=== PATIENT | female | born 1940 | race Caucasian/White ===

== ENCOUNTER 2016-11-16 10:45 | Inpatient (IN) | payer OTHER, MEDICARE ==
[~2016-11-16] VITALS: Ht 165.1 cm; Wt 69.1 kg
[2016-11-16] MEDS ORDERED: SODIUM CHLOR 0.9% 1000 ML INJ 1,000 ML IV ONE (10:47)
[2016-11-16 10:48] VITALS: BP 155/70; PULSE 50; RESP 17; TEMP 97.6; O2SAT 97
[2016-11-16 10:53] VITALS: O2SAT 100
--- NOTE | 2016-11-16 10:58 | PD ---
HPI Chief Complaint: stroke alert Time Seen by Provider: 10:47 Travel History International Travel<30 days: No Contact w/Intl Traveler<30days: No Traveled to known affect area: No History of Present Illness HPI The patient is a 76-year-old female who presents to the emergency department via EMS as a stroke alert. According to EMS the patient was outside in the heat earlier today when she suddenly developed some difficulty with her speech and mild confusion. The patient's onset of symptoms were at 10 AM according to EMS. The patient does have a previous history of CVA with right sided deficits , however, they state the patient apparently has normal speech according to the . EMS states that the patient's GCS was 14, she had difficulty answering questions and had noticeable dysarthria. Upon arrival the patient does appear to have expressive dysarthria, unsure if she has receptive aphasia as she does not repeat phrases properly and has difficulty answering questions except for her name. The medication list by EMS reveals the patient apparently takes no blood thinners including aspirin. No further information is obtainable from the patient. [facility] Past Medical History Narrative Medical CVA according to EMS, history of intracranial hemorrhage according to Dr. Katz who sees the patient in the office Past Surgical History Narrative Surgical Unable to be obtained Social History Tobacco Use: No Allergies-Medications (Allergen,Severity, Reaction): Coded Allergies: epinephrine (Verified Allergy, Intermediate, 11/16/16) Reported Meds & Prescriptions Reported Meds & Active Scripts Active Reported Sodium Chloride 1 Gm Tab 1 Gm PO DAILY Famotidine 20 Mg Tab 20 Mg PO BID Donepezil 10 Mg Tab 10 Mg PO HS Oxcarbazepine 600 Mg Tab 600 Mg PO DAILY Fluoxetine (Fluoxetine HCl) 40 Mg Cap 40 Cap PO DAILY Review of Systems ROS Limitations: Clinical Condition, Speech Impaired, Other: (history obtained from EMS) Except as stated in HPI: all other systems reviewed are Neg Neurologic: Positive: Change in Mentation, Slurred Speech Physical Exam Narrative GENERAL: Awake, 76-year-old female who appears her stated age and is in no acute respiratory distress. SKIN: Focused skin assessment warm/dry. HEAD: Atraumatic. Normocephalic. EYES: Pupils equal and round. Pupils are 3 mm bilateral and reactive. She is able to see fingers at a distance of 2 feet without difficulty. Occasional droop of the left upper eyelid. ENT: No nasal bleeding or discharge. Mucous membranes pink and moist. NECK: Trachea midline. No JVD. CARDIOVASCULAR: Regular rate and rhythm. No murmur appreciated. RESPIRATORY: No accessory muscle use. Clear to auscultation. Breath sounds equal bilaterally. GASTROINTESTINAL: Abdomen soft, non-tender, nondistended. No rebound tenderness. MUSCULOSKELETAL: No obvious deformities. No clubbing. No cyanosis. No edema. NEUROLOGICAL: Awake and alert. Patient appears to have mild left facial droop. No drift of the upper or lower extremities. Sensation appears to be intact in the arms, legs, and face bilaterally. Expressive dysarthria noted. Patient does have difficulty following simple commands, is able to tell me how may fingers I am holding up and her name, but not the month, year, and is unable to repeat phrases. [id number] and finger to nose were unable to be performed as patient has difficulty understanding what I am telling her, possible receptive aphasia. PSYCHIATRIC: Unable to assess. Data Data Last Documented VS Vital Signs Date Time Temp Pulse Resp B/P Pulse Ox O2 Delivery O2 Flow Rate FiO2 11/16/16 10:53 100 Nasal Cannula 2.00 11/16/16 10:48 97.6 50 17 155/70 Orders Diet Npo (11/16/16 Lunch) Activity Bed Rest (11/16/16 ) Electrocardiogram (11/16/16 ) I-Stat Creatinine (11/16/16 10:47) I-Stat Profile (11/16/16 10:47) Prothrombin Time / Inr (Pt) (11/16/16 10:47) Act Partial Throm Time (Ptt) (11/16/16 10:47) Complete Blood Count With Diff (11/16/16 10:47) Fibrinogen (11/16/16 10:47) Creatine Kinase (Cpk) (11/16/16 10:47) Troponin I (11/16/16 10:47) Ua Includes Microscopic (11/16/16 10:47) Drug Screen, Random Urine (11/16/16 10:47) Type And Screen (11/16/16 10:47) Ct Brain W/O Iv Contrast(Rout) (11/16/16 ) Chest, Single Ap (11/16/16 ) Cta Brain W Iv Contrast W 3d (11/16/16 10:47) Cta Neck W Iv Contrast W 3d (11/16/16 10:47) Consult Neurology (11/16/16 ) Blood Glucose (11/16/16 10:47) Ecg Monitoring (11/16/16 10:47) Neuro Checks Q2HX12,Q4H (11/16/16 10:47) Nursing Bedside Swallow Assess .ONCE (11/16/16 10:47) Iv Access Insert/Monitor (11/16/16 10:47) NPO (11/16/16 10:47) Oximetry (11/16/16 10:47) Oxygen Administration (11/16/16 10:47) Sodium Chlor 0.9% 1000 Ml Inj (Ns 1000 M (11/16/16 10:47) Resp Oxygen Serafin C Titrat 1-4 L (11/16/16 10:47) Cath For Specimen (11/16/16 10:47) Sodium Chlorid 0.9% 500 Ml Inj (Ns 500 M (11/16/16 11:00) (Hub Use Only)Inp Phy Cons/Ref (11/16/16 ) Iodixanol 320 Inj (Rad Ct) (Visipaque 32 (11/16/16 11:05) Aspirin Chew (Aspirin Chew) (11/16/16 12:00) Westergren Sedimentation Rate (11/16/16 11:55) Thyroid Stimulating Hormone (11/16/16 11:55) Free Thyroxine (T4) (11/16/16 11:55) Vitamin B1 (Thiamine) (11/16/16 11:55) Vitamin B12 (11/16/16 11:55) Urinalysis - C+S If Indicated (11/16/16 11:55) Mri Brain W&W/O Contrast (11/16/16 11:55) Eeg Study (11/16/16 11:55) Echo 2d Comp With Doppler (11/16/16 11:55) Holter Monitor Recording (11/16/16 11:55) [employer] / Telemetry MANDA.Q8H (11/16/16 11:55) ^ Seizure Precautions (11/16/16 11:55) [place] (11/16/16 11:55) Sodium Chlor 0.9% 1000 Ml Inj (Ns 1000 M (11/16/16 11:55) Lipid Profile (11/16/16 11:55) Scd&Teds Bilateral/Knee High MANDA.QSHIFT (11/16/16 11:55) Oxcarbazepine (Trileptal) (11/16/16 21:00) Trileptal (Oxycarbazapine) (11/16/16 11:57) Aspirin Ec (Ecotrin Ec) (11/17/16 09:00) Labs Laboratory Tests Test 11/16/16 10:45 White Blood Count 4.3 TH/MM3 Red Blood Count 4.70 MIL/MM3 Hemoglobin 14.7 GM/DL Bedside Hemoglobin 15.0 G/DL Hematocrit 42.9 % Bedside Hematocrit 44.0 % Mean Corpuscular Volume 91.2 FL Mean Corpuscular Hemoglobin 31.2 PG Mean Corpuscular Hemoglobin 34.2 % Concent Red Cell Distribution Width 15.0 % Platelet Count 197 TH/MM3 Mean Platelet Volume 7.7 FL Neutrophils (%) (Auto) 70.1 % Lymphocytes (%) (Auto) 20.7 % Monocytes (%) (Auto) 7.7 % Eosinophils (%) (Auto) 1.2 % Basophils (%) (Auto) 0.3 % Neutrophils # (Auto) 3.0 TH/MM3 Lymphocytes # (Auto) 0.9 TH/MM3 Monocytes # (Auto) 0.3 TH/MM3 Eosinophils # (Auto) 0.0 TH/MM3 Basophils # (Auto) 0.0 TH/MM3 CBC Comment DIFF FINAL Differential Comment Prothrombin Time 10.9 SEC Prothromb Time International 1.0 RATIO Ratio Activated Partial 24.9 SEC Thromboplast Time Fibrinogen 261 mg/dL Bedside Sodium 133 MMOL/L Bedside Potassium 4.2 MMOL/L Bedside Chloride 96 MMOL/L Bedside Blood Urea Nitrogen 13 MG/DL Bedside Creatinine 0.7 MG/DL Bedside Glucose 119 MG/DL Total Creatine Kinase 97 U/L Troponin I LESS THAN 0.02 NG/ML Blood Type O POSITIVE MDM Medical Decision Making Medical Screen Exam Complete: Yes Emergency Medical Condition: Yes Medical Record Reviewed: Yes Interpretation(s) EKG reveals sinus bradycardia with a heart rate of 48. Nonspecific T wave changes. QTC 513 ms, however, QTC 479 ms. Last Impressions Neck CTA 11/16/16 1047 Signed Impressions: Service Date/Time: Wednesday, November 16, 2016 10:56 - CONCLUSION: 1. The carotid and vertebral circulation is widely patent. 2. Mild enlargement of the thyroid with heterogeneous enhancement suggesting goiter. Yash Weaver MD Head CTA 11/16/16 1047 Signed Impressions: Service Date/Time: Wednesday, November 16, 2016 10:56 - CONCLUSION: No large or central vessel occlusion identified. Case was discussed with Dr. Garcia in the ED at the time of the dictation. Yash Weaver MD Head CT 11/16/16 0000 Signed Impressions: Service Date/Time: Wednesday, November 16, 2016 10:50 - CONCLUSION: 1. No acute hemorrhage, mass or evidence of definite infarction. 2. Old right parietal cerebral vascular accident. 3. Atrophy and extensive apparent chronic small vessel ischemic change limiting the sensitivity of the exam for subtle findings. Brock Stephens MD Chest X-Ray 11/16/16 0000 Signed Impressions: Service Date/Time: Wednesday, November 16, 2016 11:07 - CONCLUSION: No acute disease. Brock Stephens MD Laboratory Tests Test 11/16/16 10:45 White Blood Count 4.3 TH/MM3 Red Blood Count 4.70 MIL/MM3 Hemoglobin 14.7 GM/DL Bedside Hemoglobin 15.0 G/DL Hematocrit 42.9 % Bedside Hematocrit 44.0 % Mean Corpuscular Volume 91.2 FL Mean Corpuscular Hemoglobin 31.2 PG Mean Corpuscular Hemoglobin 34.2 % Concent Red Cell Distribution Width 15.0 % Platelet Count 197 TH/MM3 Mean Platelet Volume 7.7 FL Neutrophils (%) (Auto) 70.1 % Lymphocytes (%) (Auto) 20.7 % Monocytes (%) (Auto) 7.7 % Eosinophils (%) (Auto) 1.2 % Basophils (%) (Auto) 0.3 % Neutrophils # (Auto) 3.0 TH/MM3 Lymphocytes # (Auto) 0.9 TH/MM3 Monocytes # (Auto) 0.3 TH/MM3 Eosinophils # (Auto) 0.0 TH/MM3 Basophils # (Auto) 0.0 TH/MM3 CBC Comment DIFF FINAL Differential Comment Prothrombin Time 10.9 SEC Prothromb Time International 1.0 RATIO Ratio Activated Partial 24.9 SEC Thromboplast Time Fibrinogen 261 mg/dL Bedside Sodium 133 MMOL/L Bedside Potassium 4.2 MMOL/L Bedside Chloride 96 MMOL/L Bedside Blood Urea Nitrogen 13 MG/DL Bedside Creatinine 0.7 MG/DL Bedside Glucose 119 MG/DL Blood Type O POSITIVE Differential Diagnosis Differential diagnosis includes CVA, intracranial hemorrhage, TIA, heatstroke, delirium, hyponatremia, UTI, transient neurologic deficit, hypoglycemia, seizure. Narrative Course A stroke alert was called as the patient appears to have expressive dysarthria, left facial droop, and possible receptive aphasia. I discussed the patient with the on-call neurologist, Dr. Katz, who requests 300 cc normal saline bolus as well as CT the brain and CTA. Therefore, IV fluid bolus was ordered and the patient went immediately to CT for CT the brain with CTA of the head and neck. Head of bed was placed flat. CT the brain reveals old infarct in chronic white matter disease, no acute findings according to the radiologist. The patient was evaluated bedside by Dr. Katz after CT the brain, the patient symptoms were improving. The patient was now able to answer questions and her expressive dysarthria had significantly improved. Dr. Katz reviewed notes from his office visit, the patient is a personal patient of his in the office. The patient has a history of intracranial hemorrhage and is currently off all blood thinners. Therefore, the patient has a absolute contraindication to TPA. The patient symptoms were also improving, therefore, no TPA will be administered. CTA was performed, however, I doubt licensed audiologist patient's symptoms are improving. I discussed the patient with the interventional radiologist, Dr. Benny Weaver, who reviewed the patient's CTA, there is no large clot, therefore, no interventional radiology intervention warranted. NIHSS 7 Time: 1046 Patient has contraindication with history of previous intracranial hemorrhage, also, the patient's symptoms were improving after return from CT. Therefore, no TPA warranted. The patient was incontinent of stool, may have suffered a seizure versus TIA. I had a discussion with Dr. Katz who recommends baby aspirin, therefore, patient was administered a baby aspirin. The patient has [employer], therefore, [facility] were paged for admission. Physician Communication Physician Communication The patient has [employer], therefore, [facility] were paged for admission. Diagnosis Primary Impression: TIA (transient ischemic attack) Qualified Code: G45.9 - Transient cerebral ischemia, unspecified type Additional Impression: Dysarthria Admitting Information Admitting Physician Requests: Admit Condition: Stable Gume Garcia MD Nov 16, 2016 10:58
[2016-11-16] MEDS ORDERED: SODIUM CHLORID 0.9% 500 ML INJ 500 ML IV ONE (11:00)
--- NOTE | 2016-11-16 11:04 | RADRPT ---
EXAM DATE/TIME: 11/16/2016 10:50 [facility] COMPARISON: No previous studies available for comparison. INDICATIONS : Stroke alert, aphasia. History of stroke. RADIATION DOSE: 56.35 CTDIvol (mGy) This report was called by Dr. Stephens to Dr. Garcia at 1059 hrs. MEDICAL HISTORY : Non-responsive. SURGICAL HISTORY : Non-responsive. ENCOUNTER: Initial ACUITY: 1 day PAIN SCALE: Non-responsive LOCATION: cranial TECHNIQUE: Multiple contiguous axial images were obtained of the head. Using automated exposure control and adj ustment of the mA and/or kV according to patient size, radiation dose was kept as low as reasonably a chievable to obtain optimal diagnostic quality images. DICOM format image data is available electro nically for review and comparison. FINDINGS: CEREBRUM: There is diffuse mild to moderate atrophic change with sulcal and ventricular prominence. Extensive p eriventricular white matter lucencies are noted with abnormal low attenuation in the right parietal r egion extending to the surface of the brain consistent with the history of prior cerebral vascular ac cident.. No evidence of midline shift, mass lesion, hemorrhage or definite acute infarction. No ext ra-axial fluid collections are seen. POSTERIOR FOSSA: The cerebellum and brainstem are intact. The 4th ventricle is midline. The cerebellopontine angle i s unremarkable. EXTRACRANIAL: The visualized portion of the orbits is intact. SKULL: The calvaria is intact. No evidence of skull fracture. CONCLUSION: 1. No acute hemorrhage, mass or evidence of definite infarction. 2. Old right parietal cerebral vascular accident. 3. Atrophy and extensive apparent chronic small vessel ischemic change limiting the sensitivity of th e exam for subtle findings. Brock Stephens MD on November 16, 2016 at 10:58 Board Certified Radiologist. This report was verified electronically.
[2016-11-16] MEDS ORDERED: IODIXANOL 320 MG/ML 10 ML VIAL (for Rad CT) IV ONE (11:05)
[2016-11-16 11:21] LABS: BASOPHIL % 0.3 % (0.0-2.0); EOSINOPHIL % 1.2 % (0.0-4.0); HEMATOCRIT 42.9 % (35.0-46.0); HEMO FLAGS DIFF FINAL; I-STAT POTASSIUM 4.2 MMOL/L (3.5-4.9); I-STAT SODIUM 133 MMOL/L (138-146); LYMPH % 20.7 % (9.0-44.0); LYMPHOCYTE # 0.9 TH/MM3 (1.0-4.8); MEAN CELL VOLUME 91.2 FL (80.0-100.0); MEAN CORPUSCULAR HEMOGLOBIN 31.2 PG (27.0-34.0); MEAN CORPUSCULAR HGB CONC 34.2 % (32.0-36.0); MONO % 7.7 % (0.0-8.0); NEUT % 70.1 % (16.0-70.0); PLATELET COUNT 197 TH/MM3 (150-450); WHITE BLOOD COUNT 4.3 TH/MM3 (4.0-11.0)
--- NOTE | 2016-11-16 11:21 | RADRPT ---
EXAM DATE/TIME: 11/16/2016 10:56 [facility] COMPARISON: CT BRAIN W/O CONTRAST, November 16, 2016, 10:50. INDICATIONS : Stroke alert, aphasia. IV CONTRAST: 65 cc Visipaque (iodixanol) IV ; Cumulative dose for multiple exams. RADIATION DOSE: 14.11 CTDIvol (mGy) ; Combined studies MEDICAL HISTORY : Non-responsive. SURGICAL HISTORY : Non-responsive. ENCOUNTER: Initial ACUITY: 1 day PAIN SCALE: Non-responsive LOCATION: cranial TECHNIQUE: Volumetric scanning was performed using a multi-row detector CT scanner. The data was post processed with a variety of visualization algorithms including full volume maximum intensity projection, multi -planar sliding thin slab reformation, curved planar reformation, and surface rendering techniques. Using automated exposure control and adjustment of the mA and/or kV according to patient size, radiat ion dose was kept as low as reasonably achievable to obtain optimal diagnostic quality images. DICO M format image data is available electronically for review and comparison. FINDINGS: Both distal internal carotid arteries are widely patent. The basilar is widely patent. The appearance of the anterior and middle cerebral circulation is within normal limits. The basilar is widely paten t. The posterior cerebrals appear widely patent. CONCLUSION: No large or central vessel occlusion identified. Case was discussed with Dr. Garcia in the ED at t he time of the dictation. Yash Weaver MD on November 16, 2016 at 11:16 Board Certified Radiologist. This report was verified electronically.
--- NOTE | 2016-11-16 11:24 | RADRPT ---
EXAM DATE/TIME: 11/16/2016 11:07 [facility] COMPARISON: No previous studies available for comparison. INDICATIONS : STROKE ALERT. 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 MEDICAL HISTORY : None. SURGICAL HISTORY : None. ENCOUNTER: Initial ACUITY: 1 day PAIN SCORE: 0/10 LOCATION: Bilateral chest FINDINGS: A single view of the chest demonstrates the lungs to be symmetrically aerated without evidence of mas s, infiltrate or effusion. The cardiomediastinal contours are unremarkable. Atherosclerotic calcific ations are present in the aorta. There is a calcified granuloma in the right upper lobe. Osseous str uctures are intact. CONCLUSION: No acute disease. Brock Stephens MD on November 16, 2016 at 11:21 Board Certified Radiologist. This report was verified electronically.
--- NOTE | 2016-11-16 11:25 | RADRPT ---
EXAM DATE/TIME: 11/16/2016 10:56 [facility] COMPARISON: CT BRAIN W/O CONTRAST, November 16, 2016, 10:50. INDICATIONS : Stroke alert, aphasia. IV CONTRAST: 65 cc Visipaque (iodixanol) IV ; Cumulative dose for multiple exams. RADIATION DOSE: 14.11 CTDIvol (mGy) ; Combined studies MEDICAL HISTORY : Non-responsive. SURGICAL HISTORY : Non-responsive. ENCOUNTER: Initial ACUITY: 1 day PAIN SCALE: Non-responsive LOCATION: neck Elevated flow velocities and ICA/CCA ratios have been found to correlate with increased degrees of vessel stenosis, calculated as percentage of diameter relative to a normal segment of distal ICA/CCA. TECHNIQUE: Volumetric scanning was performed using a multirow detector CT scanner. The data was post processed with a variety of visualization algorithms including full-volume maximum intensity projection, multip lanar sliding thin-slab reformation, curved-planar reformation, and surface-rendering techniques. Us ing automated exposure control and adjustment of the mA and/or kV according to patient size, radiatio n dose was kept as low as reasonably achievable to obtain optimal diagnostic quality images. DICOM f ormat image data is available electronically for review and comparison. FINDINGS: AORTIC ARCH: There is bovine branching of the great vessels from the arch. The origins of the great vessels are wi delano patent. RIGHT CAROTID: The common carotid artery is intact. The carotid bulb has a normal configuration without ulceration o r narrowing. The internal carotid artery lumen is smooth without stenosis. The external carotid karthik ry is intact. LEFT CAROTID: The common carotid artery is intact. The carotid bulb has a normal configuration without ulceration or narrowing. The internal carotid artery lumen is smooth without stenosis. The external carotid ar eder is intact. VERTEBRALS: The vertebral arteries have a symmetric diameter. No stenotic lesions are seen. CONCLUSION: 1. The carotid and vertebral circulation is widely patent. 2. Mild enlargement of the thyroid with heterogeneous enhancement suggesting goiter. Yash Weaver MD on November 16, 2016 at 11:22 Board Certified Radiologist. This report was verified electronically.
[2016-11-16 11:33] LABS: APTT (PATIENT) 24.9 SEC (24.3-30.1); PROTHROMBIN TIME - PATIENT 10.9 SEC (9.8-11.6)
[2016-11-16] MEDS ORDERED: FAMO20TA2 PO (11:48)
[2016-11-16] MEDS ORDERED: FLUO40CA PO (11:48)
[2016-11-16] MEDS ORDERED: SODI1TAB PO (11:48)
[2016-11-16] MEDS ORDERED: OXCA600T PO (11:48)
[2016-11-16] MEDS ORDERED: DONE10TA7 PO (11:48)
[2016-11-16] MEDS ORDERED: SODIUM CHLOR 0.9% 1000 ML INJ 1,000 ML IV SCH (11:55)
[2016-11-16] MEDS ORDERED: ASPIRIN 81 MG CHEW TAB CHEW ONE (12:00)
[2016-11-16 12:02] LABS: CREATINE KINASE 97 U/L (26-192)
[2016-11-16] MEDS ORDERED: SODIUM CHLORIDE 0.9% FLUSH 5 ML FLUSH IV FLUSH PRN (12:30)
[2016-11-16] MEDS ORDERED: GLUCAGON 1 MG/ML VIAL OTHER PRN (12:30)
[2016-11-16] MEDS ORDERED: ENALAPRILAT 1.25 MG/ML VIAL IV PRN (12:30)
[2016-11-16] MEDS ORDERED: DEXTROSE 50% IN WATER 50 ML VIAL(D50) IV PUSH PRN (12:30)
--- NOTE | 2016-11-16 12:31 | MB ---
cc: MANDUJANOFLORENCIA DATE OF CONSULTATION 11/16/2016 REASON FOR CONSULTATION The patient is a 76-year-old right-handed woman with a history of intracranial hemorrhage, a history of amyloid angiopathy, a few intracranial hemorrhage off blood thinners, hyponatremia, some falls in the past, left frontal lobe hematoma old. MRA of the neck vein negative. Subarachnoid hemorrhage in the past. Unsteady gait on Aricept. He has some mild dementia, unsteady gait, some migraine with aura, ulnar neuropathy, some partial seizures, some dementia, had failed Namenda, was stable on Aricept, some history of tremors. He was out on the porch in the heat, felt warm this morning about 10:00 a.m., walked in the house and evidently fell to the floor and became unconscious for about 10 minutes according to her and then when she woke up, she had difficulty speaking and that has cleared in the emergency room. CT showed white matter changes bilaterally severe and an old right parietal subcortical to cortical region of hypodensity and some ventricular dilation. She had never been to this hospital before. REVIEW OF SYSTEMS According to the patient no hypertension, diabetes, hypercholesterolemia, MO, CABG, stent angioplasty, A fib, Coumadin, renal, hepatic or pulmonary disease, thyroid disease lupus, ulcer cancer. SOCIAL HISTORY Not a smoker or a drinker, lives with her . FAMILY HISTORY Negative for cancer, seizures or stroke. PHYSICAL EXAM On exam, she is in sinus rhythm afebrile, 51, 55, 70, 17. NECK: There are no carotid bruits. HEART: Regular rhythm. I did not detect a murmur. NEUROLOGIC: Pupils are equally. Visual dietz are full. Extraocular intact without nystagmus. Face symmetrical normal station. Tongue was midline. No drift. Normal strength in upper and lower extremities bilaterally. Toes downgoing bilaterally. DTRs trace throughout. Pinprick is intact is intact throughout. She is not ataxic on [id number]. She can name, repeat and follow all commands well. Speech is back to normal. LABORATORY DATA CBC is normal. Basic metabolic profile, sodium 133, otherwise normal preliminary. Coags normal. CTA of the augustine of Gomez was normal. CTA of the neck was normal except for a mildly enlarged thyroid. Chest x-ray negative. CT scan of the brain, old right parietal vascular insult. IMPRESSION Possible syncopal episode, although she denied any chest pain or palpitations, possible seizure or TIA. The less likely was a syncopal episode. PLAN We are going to admit her to the hospital, do a workup. Recent meds, Prozac, Famotidine, Fluoxetine, Aricept, Oxcarbazepine 600 mg b.i.d. and sodium pills. We will check her Trileptal level and do some other lab work on her. I will be following her with you in the hospital. Check an MRI of the brain, EEG and give her a baby aspirin a day for now. She was not TPA candidate as she had fully resolved and NIH scale was 0. MD DYAN Middleton/DEBORAH /11:48 AM /12:06 PM
--- NOTE | 2016-11-16 12:43 | HHI.HP ---
HPI Service [facility] Primary Care Physician Eyal Eisenberg MD Admission Diagnosis Diagnoses: Chief Complaint: Stroke Alert Travel History International Travel<30 Days: No Contact w/Intl Traveler <30 Da: No Traveled to Known Affected Are: No History of Present Illness This is a pleasant 76 y/o Female who was brought in to ER as Stroke Alert as per EMS the patient was outside in the heat earlier today when she suddenly developed some difficulty with her speech and mild confusion. The patient's onset of symptoms were at 10 AM according to EMS. The patient does have a previous history of CVA with right sided deficits, however, they state the patient apparently has normal speech according to the . EMS states that the patient's GCS was 14, she had difficulty answering questions and had noticeable dysarthria. Upon arrival the patient does appear to have expressive dysarthria, unsure if she has receptive aphasia as she does not repeat phrases properly and has difficulty answering questions except for her name. The medication list by EMS reveals the patient apparently takes no blood thinners including aspirin. Patient seen in her bedroom in the presence of her Mr. Cristobal and her Son Mr. Diana and Daughter in Law Jennie the patient was at home with her but she was outside the house with the dog and her called her to come in due to the warm weather and when she came in she passed out and was unconscious when was able to regain consciousness she developed slurred speech with Expressive Dysarthria. Review of Systems Constitutional: DENIES: Fever, Chills, Change in appetite Endocrine: DENIES: Heat/cold intolerance Eyes: DENIES: Blurred vision, Eye pain Except as stated in HPI: all other systems reviewed are Neg Past Family Social History Past Medical History CVA status post Intracranial Hemorrhage with Primary Neurology Specialist Doctor Gianna Past Surgical History bilateral knee arthroplasty kidney stone removal Laparoscopic procedure Emma Conti Reported Medications Reported Meds & Active Scripts Active Reported Sodium Chloride 1 Gm Tab 1 Gm PO DAILY Famotidine 20 Mg Tab 20 Mg PO BID Donepezil 10 Mg Tab 10 Mg PO HS Oxcarbazepine 600 Mg Tab 600 Mg PO DAILY Fluoxetine (Fluoxetine HCl) 40 Mg Cap 40 Cap PO DAILY Allergies: Coded Allergies: epinephrine (Verified Allergy, Intermediate, 11/16/16) Active Ordered Medications Current Medications Medications (Trade) Dose Ordered Sig/Brianna Route Start Time Stop Time Status Last Admin (Trileptal) 600 mg BID PO 11/16/16 21:00 (Aricept) 10 mg HS PO 11/16/16 21:00 (Pepcid) 20 mg BID PO 11/16/16 21:00 (PROzac) 40 mg DAILY PO 11/17/16 09:00 (Sodium Chloride) 1 gm DAILY PO 11/17/16 09:00 (NS Flush) 2 ml BID IV FLUSH 11/16/16 21:00 IV Flush 2 ml 2 ml UNSCH PRN IV FLUSH 11/16/16 12:30 (NS 1000 ml Inj) 1,000 ml @ 70 mls/hr [id number] IV 11/16/16 14:00 (Vasotec Inj) 1.25 mg Q4H PRN IV 11/16/16 12:30 (Aspirin Chew) 81 mg DAILY PO 11/17/16 09:00 (Lipitor) 40 mg HS PO 11/16/16 21:00 (NovoLOG SUPPLEMENTAL SCALE) 1 ACHS SQ 11/16/16 16:00 (D50w (Vial) Inj) 50 ml UNSCH PRN IV PUSH 11/16/16 12:30 (Glucagon Inj) 1 mg UNSCH PRN OTHER 11/16/16 12:30 Family History Lives with his and her Son and Daughter in law lives with them. denies any toxic habits. Physical Exam Vital Signs Vital Signs Date Time Temp Pulse Resp B/P Pulse Ox O2 Delivery O2 Flow Rate FiO2 11/16/16 10:53 100 Nasal Cannula 2.00 11/16/16 10:48 97.6 50 17 155/70 97 Nasal Cannula 2 11/16/16 10:48 97 Nasal Cannula 2 11/16/16 10:48 97 Nasal Cannula 2 Physical Exam GENERAL: No distress. SKIN: Focused skin assessment warm/dry. HEAD: Atraumatic. Normocephalic. EYES: Pupils equal and round. Pupils are 3 mm bilateral and reactive. She is able to see fingers at a distance of 2 feet without difficulty. Occasional droop of the right upper eyelid. ENT: No nasal bleeding or discharge. Mucous membranes pink and moist. NECK: Trachea midline. No JVD. CARDIOVASCULAR: Regular rate and rhythm. No murmur appreciated. RESPIRATORY: No accessory muscle use. Clear to auscultation. Breath sounds equal bilaterally. GASTROINTESTINAL: Abdomen soft, non-tender, nondistended. No rebound tenderness. MUSCULOSKELETAL: No obvious deformities. No clubbing. No cyanosis. No edema. NEUROLOGICAL: Awake and alert. Patient appears to have mild left facial droop. No focal deficit at this time. PSYCHIATRIC: Unable to assess. Laboratory Laboratory Tests Test 11/16/16 10:45 White Blood Count 4.3 Red Blood Count 4.70 Hemoglobin 14.7 Bedside Hemoglobin 15.0 Hematocrit 42.9 Bedside Hematocrit 44.0 Mean Corpuscular Volume 91.2 Mean Corpuscular Hemoglobin 31.2 Mean Corpuscular Hemoglobin 34.2 Concent Red Cell Distribution Width 15.0 Platelet Count 197 Mean Platelet Volume 7.7 Neutrophils (%) (Auto) 70.1 Lymphocytes (%) (Auto) 20.7 Monocytes (%) (Auto) 7.7 Eosinophils (%) (Auto) 1.2 Basophils (%) (Auto) 0.3 Neutrophils # (Auto) 3.0 Lymphocytes # (Auto) 0.9 Monocytes # (Auto) 0.3 Eosinophils # (Auto) 0.0 Basophils # (Auto) 0.0 CBC Comment DIFF FINAL Differential Comment Prothrombin Time 10.9 Prothromb Time International 1.0 Ratio Activated Partial 24.9 Thromboplast Time Fibrinogen 261 Bedside Sodium 133 Bedside Potassium 4.2 Bedside Chloride 96 Bedside Blood Urea Nitrogen 13 Bedside Creatinine 0.7 Bedside Glucose 119 Total Creatine Kinase 97 Troponin I LESS THAN 0.02 Blood Type O POSITIVE Result Diagram: 11/16/16 1045 Imaging Last Impressions Neck CTA 11/16/16 1047 Signed Impressions: Service Date/Time: Wednesday, November 16, 2016 10:56 - CONCLUSION: 1. The carotid and vertebral circulation is widely patent. 2. Mild enlargement of the thyroid with heterogeneous enhancement suggesting goiter. Yash Weaver MD Head CTA 11/16/16 1047 Signed Impressions: Service Date/Time: Wednesday, November 16, 2016 10:56 - CONCLUSION: No large or central vessel occlusion identified. Case was discussed with Dr. Garcia in the ED at the time of the dictation. Yash Weaver MD Head CT 11/16/16 0000 Signed Impressions: Service Date/Time: Wednesday, November 16, 2016 10:50 - CONCLUSION: 1. No acute hemorrhage, mass or evidence of definite infarction. 2. Old right parietal cerebral vascular accident. 3. Atrophy and extensive apparent chronic small vessel ischemic change limiting the sensitivity of the exam for subtle findings. Brock Stephens MD Chest X-Ray 11/16/16 0000 Signed Impressions: Service Date/Time: Wednesday, November 16, 2016 11:07 - CONCLUSION: No acute disease. Brock Stephens MD Assessment and Plan Assessment and Plan TIA in a patient with previous CVA status post Intracranial Hemorrhage with Primary Neurology Specialist Doctor Gianna admitted for further workup, was not able to give her Anti fibrinolytics due to recent Hemorrhagic stroke, asked for MRI brain Aspirin 81 mg daily, Echocardiogram, will follow specialist recommendations by her Primary Neurology specialist Doctor Odilon Head. CT brain reveals old infarct in chronic white matter disease, no acute findings according to the radiologist. PT, OT and Speech Therapy. Discussed with ER specialist doctor Gume Garcia Code Status Full code. Discussed Condition With Patient, Mr. Cristobal, her Son Mr. Diana and Daughter in law Mrs. Schneider. Physician Certification 2 Midnight Certification Type: Admission for Inpatient Services Order for Inpatient Services The services are ordered in accordance with Medicare regulations or non- Medicare payer requirements, as applicable. In the case of services not specified as inpatient-only, they are appropriately provided as inpatient services in accordance with the 2-midnight benchmark. Estimated LOS (days): 3 days is the estimated time the patient will need to remain in the hospital, assuming treatment plan goals are met and no additional complications. Post-Hospital Plan: Not yet determined Anand Toro MD Nov 16, 2016 12:42
[2016-11-16] MEDS: SODIUM CHLOR 0.9% 1000 ML INJ 1,000 ML IV SCH ×2 (14:00→20:51)
[2016-11-16 14:57] VITALS: BP 173/81; PULSE 52; RESP 15; O2SAT 100
[2016-11-16] MEDS: INSULIN ASPART SUPPLEMENTAL SCALE SQ SCH ×2 (15:30→20:48)
[2016-11-16 15:37] LABS: BLOOD, URINE NEG (NEG); GLUCOSE,URINE NEG (NEG); HYALINE CAST, URINE 2 /lpf (RARE); KETONE, URINE 40 mg/dL (NEG); NITRITE,URINE NEG (NEG); PH, URINE 6.5 (5.0-8.5); SQUAMOUS EPITHELIAL CELL URINE 1 /hpf (0-5); URINE COLOR YELLOW (YELLW/STRAW)
[2016-11-16 16:27] VITALS: BP 182/72; PULSE 52; RESP 18; TEMP 97.7; O2SAT 100
[2016-11-16] MEDS ORDERED: GADODIAMIDE PF 287 MG/ML 5 ML VIAL (for RAD MRI) IV ONE (17:33)
--- NOTE | 2016-11-16 17:38 | RADRPT ---
EXAM DATE/TIME: 11/16/2016 17:01 [facility] COMPARISON: CT BRAIN W/O CONTRAST, November 16, 2016, 10:50. INDICATIONS : Aphasia. CONTRAST: 13 cc Omniscan (gadodiamide) IV MEDICAL HISTORY : Hypertension. CVA SURGICAL HISTORY : Total knee replacement, right. Total knee replacement, left. ENCOUNTER: Initial ACUITY: 1 day PAIN SCORE: 0/10 LOCATION: cranial TECHNIQUE: Multiplanar, multisequence MRI of the brain was performed both prior to and following the administrat ion of paramagnetic contrast. FINDINGS: CEREBRUM: The ventricles are normal for age. No evidence of midline shift, mass lesion, hemorrhage or acute in farction. No extraaxial fluid collections are seen. The pituitary gland and suprasellar cistern are normal in configuration. WHITE MATTER: On the flair weighted images there is extensive increased signal in the periventricular and deep whit e matter. There is a focal area of encephalomalacia involving the right parietal lobe extending up to the surface of brain. POSTERIOR FOSSA: The cerebellum and brainstem are intact. The 4th ventricle is midline. The cerebellopontine angle is unremarkable. The cerebellar tonsils are normal in position. DIFFUSION IMAGING: No focal areas of restricted diffusion are seen. No evidence of acute infarction. EXTRACRANIAL: The visualized portions of the orbits and paranasal sinuses are unremarkable. POST-CONTRAST: No abnormal areas of parenchymal or dural enhancement. No evidence of blood-brain barrier breakdown. CONCLUSION: 1. No acute infarction. 2. Remote cerebral vascular accidents in the right parietal lobe. 3. Moderate atrophy and extensive chronic small vessel ischemic change. Brock Stephens MD on November 16, 2016 at 17:33 Board Certified Radiologist. This report was verified electronically.
[2016-11-16 19:24] LABS: FREE T4 0.77 NG/DL (0.76-1.46); HDL CHOLESTEROL 87.8 MG/DL (40.0-60.0)
[2016-11-16 20:00] VITALS: BP 139/86; PULSE 100; RESP 20; TEMP 97.4; O2SAT 98
[2016-11-16] MEDS ORDERED: ONDANSETRON HCL 4 MG/2 ML VIAL IV PUSH PRN (20:00)
[2016-11-16] MEDS: SODIUM CHLORIDE 0.9% FLUSH 5 ML FLUSH IV FLUSH SCH (20:45)
[2016-11-16] MEDS: OXcarbazepine 600 MG TAB PO SCH (20:46)
[2016-11-16] MEDS: FAMOTIDINE 20 MG TAB PO SCH (20:47)
[2016-11-16] MEDS ORDERED: ATORVASTATIN 40 MG TAB PO SCH (21:00)
[2016-11-16] MEDS ORDERED: DONEPEZIL HCL 5 MG TAB PO SCH (21:00)
[2016-11-17] VITALS (8 sets, daily range): BP systolic 106–144; BP diastolic 57–75; PULSE 53–86; RESP 18–20; TEMP 97–98.6; O2SAT 95–100
[2016-11-17 03:30] LABS: BLOOD, URINE NEG (NEG); COMMENT (UR) CULT NOT INDICATED; CULTURE IF INDICATED CULT NOT INDICATED; GLUCOSE,URINE NEG (NEG); KETONE, URINE 10 mg/dL (NEG); MUCUS URINE FEW /lpf (OCC); NITRITE,URINE NEG (NEG); URINE COLOR YELLOW (YELLW/STRAW)
[2016-11-17] MEDS: INSULIN ASPART SUPPLEMENTAL SCALE SQ SCH ×3 (06:41→16:00)
[2016-11-17] MEDS: FAMOTIDINE 20 MG TAB PO SCH (08:48)
[2016-11-17] MEDS: SODIUM CHLORIDE 0.9% FLUSH 5 ML FLUSH IV FLUSH SCH (08:49)
--- NOTE | 2016-11-17 08:50 | HHI.PR ---
Subjective Remarks sr Objective Vital Signs Date Time Temp Pulse Resp B/P Pulse Ox O2 Delivery O2 Flow Rate FiO2 11/17/16 08:37 98.1 58 20 106/64 95 11/17/16 06:51 98 11/17/16 04:00 97.8 57 18 144/75 100 11/17/16 00:53 58 11/17/16 00:00 97.0 86 18 135/74 95 11/16/16 20:00 97.4 100 20 139/86 98 11/16/16 16:27 97.7 52 18 182/72 100 11/16/16 14:57 52 15 173/81 100 Room Air 11/16/16 10:53 100 Nasal Cannula 2.00 11/16/16 10:48 97.6 50 17 155/70 97 Nasal Cannula 2 11/16/16 10:48 97 Nasal Cannula 2 11/16/16 10:48 97 Nasal Cannula 2 Result Diagram: 11/16/16 1045 Objective Remarks awake alert nl speech moves all well not yr Assessment and Plan Assessment and Plan imp mri nothing new 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
[2016-11-17] MEDS ORDERED: ASPIRIN EC 325 MG TABEC PO SCH (09:00)
[2016-11-17] MEDS ORDERED: FLUoxetine HCL 20 MG CAP PO SCH (09:00)
[2016-11-17] MEDS ORDERED: SODIUM CHLORIDE 1 GRAM TAB PO SCH (09:00)
[2016-11-17] MEDS ORDERED: OXcarbazepine 600 MG TAB PO SCH (09:00)
[2016-11-17] MEDS ORDERED: ASPIRIN 81 MG CHEW TAB PO SCH (09:00)
[2016-11-17 09:15] LABS: HDL CHOLESTEROL 73.8 MG/DL (40.0-60.0)
[2016-11-17] MEDS: OXcarbazepine 600 MG TAB PO SCH (10:57)
--- NOTE | 2016-11-17 11:06 | HHI.PR ---
Subjective Remarks This is a pleasant 76 y/o Female who was brought in to ER as Stroke Alert as per EMS the patient was outside in the heat earlier today when she suddenly developed some difficulty with her speech and mild confusion. The patient's onset of symptoms were at 10 AM according to EMS. The patient does have a previous history of CVA with right sided deficits, however, they state the patient apparently has normal speech according to the . EMS states that the patient's GCS was 14, she had difficulty answering questions and had noticeable dysarthria. Upon arrival the patient does appear to have expressive dysarthria, unsure if she has receptive aphasia as she does not repeat phrases properly and has difficulty answering questions except for her name. The medication list by EMS reveals the patient apparently takes no blood thinners including aspirin. Patient seen in her bedroom in the presence of her Mr. Cristobal and her Son Mr. Diana and Daughter in Law Jennie the patient was at home with her but she was outside the house with the dog and her called her to come in due to the warm weather and when she came in she passed out and was unconscious when was able to regain consciousness she developed slurred speech with Expressive Dysarthria. 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 No nausea, vomit or diarrhea. Objective Vital Signs Date Time Temp Pulse Resp B/P Pulse Ox O2 Delivery O2 Flow Rate FiO2 11/17/16 08:37 98.1 58 20 106/64 95 11/17/16 08:00 55 11/17/16 06:51 98 11/17/16 04:00 97.8 57 18 144/75 100 11/17/16 00:53 58 11/17/16 00:00 97.0 86 18 135/74 95 11/16/16 20:00 97.4 100 20 139/86 98 11/16/16 16:27 97.7 52 18 182/72 100 11/16/16 14:57 52 15 173/81 100 Room Air Result Diagram: 11/16/16 1045 Imaging Last Impressions Brain MRI 11/16/16 1155 Signed Impressions: Service Date/Time: Wednesday, November 16, 2016 17:01 - CONCLUSION: 1. No acute infarction. 2. Remote cerebral vascular accidents in the right parietal lobe. 3. Moderate atrophy and extensive chronic small vessel ischemic change. Brock Stephens MD Neck CTA 11/16/16 1047 Signed Impressions: Service Date/Time: Wednesday, November 16, 2016 10:56 - CONCLUSION: 1. The carotid and vertebral circulation is widely patent. 2. Mild enlargement of the thyroid with heterogeneous enhancement suggesting goiter. Yash Weaver MD Head CTA 11/16/16 1047 Signed Impressions: Service Date/Time: Wednesday, November 16, 2016 10:56 - CONCLUSION: No large or central vessel occlusion identified. Case was discussed with Dr. Garcia in the ED at the time of the dictation. Yash Weaver MD Head CT 11/16/16 0000 Signed Impressions: Service Date/Time: Wednesday, November 16, 2016 10:50 - CONCLUSION: 1. No acute hemorrhage, mass or evidence of definite infarction. 2. Old right parietal cerebral vascular accident. 3. Atrophy and extensive apparent chronic small vessel ischemic change limiting the sensitivity of the exam for subtle findings. Brock Stephens MD Chest X-Ray 11/16/16 0000 Signed Impressions: Service Date/Time: Wednesday, November 16, 2016 11:07 - CONCLUSION: No acute disease. Brock Stephens MD Procedures None Other Results Laboratory Tests Test 11/16/16 11/16/16 11/16/16 11/17/16 10:45 15:05 18:09 03:00 White Blood Count 4.3 TH/MM3 Red Blood Count 4.70 MIL/MM3 Hemoglobin 14.7 GM/DL Bedside Hemoglobin 15.0 G/DL Hematocrit 42.9 % Bedside Hematocrit 44.0 % Mean Corpuscular Volume 91.2 FL Mean Corpuscular Hemoglobin 31.2 PG Mean Corpuscular Hemoglobin 34.2 % Concent Red Cell Distribution Width 15.0 % Platelet Count 197 TH/MM3 Mean Platelet Volume 7.7 FL Neutrophils (%) (Auto) 70.1 % Lymphocytes (%) (Auto) 20.7 % Monocytes (%) (Auto) 7.7 % Eosinophils (%) (Auto) 1.2 % Basophils (%) (Auto) 0.3 % Neutrophils # (Auto) 3.0 TH/MM3 Lymphocytes # (Auto) 0.9 TH/MM3 Monocytes # (Auto) 0.3 TH/MM3 Eosinophils # (Auto) 0.0 TH/MM3 Basophils # (Auto) 0.0 TH/MM3 CBC Comment DIFF FINAL Differential Comment Erythrocyte Sedimentation Rate 2 mm/hr Prothrombin Time 10.9 SEC Prothromb Time International 1.0 RATIO Ratio Activated Partial 24.9 SEC Thromboplast Time Fibrinogen 261 mg/dL Bedside Sodium 133 MMOL/L Bedside Potassium 4.2 MMOL/L Bedside Chloride 96 MMOL/L Bedside Blood Urea Nitrogen 13 MG/DL Bedside Creatinine 0.7 MG/DL Bedside Glucose 119 MG/DL Total Creatine Kinase 97 U/L Blood Type O POSITIVE Antibody Screen NEGATIVE Blood Bank Comment Urine Squamous Epithelial 1 /hpf Cells Urine Hyaline Casts 2 /lpf Urine Opiates Screen NEG Urine Barbiturates Screen NEG Urine Amphetamines Screen NEG Urine Benzodiazepines Screen NEG Urine Cocaine Screen NEG Urine Cannabinoids Screen NEG Vitamin B12 Level 643 PG/ML Free Thyroxine 0.77 NG/DL Thyroid Stimulating Hormone 0.558 uIU/ML 3rd Gen Urine Color YELLOW Urine Turbidity CLEAR Urine pH 6.0 Urine Specific [place] 1.022 Urine Protein NEG mg/dL Urine Glucose (UA) NEG mg/dL Urine Ketones 10 mg/dL Urine Occult Blood NEG Urine Nitrite NEG Urine Bilirubin NEG Urine Urobilinogen LESS THAN 2.0 MG/DL Urine Leukocyte Esterase NEG Urine RBC LESS THAN 1 /hpf Urine WBC 4 /hpf Urine Mucus FEW /lpf Microscopic Urinalysis Comment CULT NOT INDICATED Test 11/17/16 08:30 Troponin I 0.02 NG/ML Triglycerides Level 59 MG/DL Cholesterol Level 169 MG/DL LDL Cholesterol 83 MG/DL HDL Cholesterol 73.8 MG/DL Cholesterol/HDL Ratio 2.28 RATIO Objective Remarks GENERAL: No distress. SKIN: Focused skin assessment warm/dry. HEAD: Atraumatic. Normocephalic. EYES: Pupils equal and round. Pupils are 3 mm bilateral and reactive. She is able to see fingers at a distance of 2 feet without difficulty. Occasional droop of the right upper eyelid. ENT: No nasal bleeding or discharge. Mucous membranes pink and moist. NECK: Trachea midline. No JVD. CARDIOVASCULAR: Regular rate and rhythm. No murmur appreciated. RESPIRATORY: No accessory muscle use. Clear to auscultation. Breath sounds equal bilaterally. GASTROINTESTINAL: Abdomen soft, non-tender, nondistended. No rebound tenderness. MUSCULOSKELETAL: No obvious deformities. No clubbing. No cyanosis. No edema. NEUROLOGICAL: Awake and alert. Patient appears to have mild left facial droop. No focal deficit at this time. PSYCHIATRIC: Unable to assess. Medications and IVs Current Medications Medications (Trade) Dose Ordered Sig/Brianna Route Start Time Stop Time Status Last Admin (Trileptal) 600 mg BID PO 11/16/16 21:00 11/17/16 10:57 (Aricept) 10 mg HS PO 11/16/16 21:00 11/16/16 20:47 (Pepcid) 20 mg BID PO 11/16/16 21:00 11/17/16 08:48 (PROzac) 40 mg DAILY PO 11/17/16 09:00 11/17/16 08:48 (Sodium Chloride) 1 gm DAILY PO 11/17/16 09:00 11/17/16 08:48 (NS Flush) 2 ml BID IV FLUSH 11/16/16 21:00 IV Flush 2 ml 2 ml UNSCH PRN IV FLUSH 11/16/16 12:30 (NS 1000 ml Inj) 1,000 ml @ 70 mls/hr [id number] IV 11/16/16 14:00 11/16/16 20:51 (Vasotec Inj) 1.25 mg Q4H PRN IV 11/16/16 12:30 (Lipitor) 40 mg HS PO 11/16/16 21:00 11/16/16 20:46 (NovoLOG SUPPLEMENTAL SCALE) 1 ACHS SQ 11/16/16 16:00 (D50w (Vial) Inj) 50 ml UNSCH PRN IV PUSH 11/16/16 12:30 (Glucagon Inj) 1 mg UNSCH PRN OTHER 11/16/16 12:30 (Zofran Inj) 4 mg Q4H PRN IV PUSH 11/16/16 20:00 A/P Assessment and Plan TIA in a patient with previous CVA status post Intracranial Hemorrhage with Primary Neurology Specialist Doctor Gianna admitted for further workup, was not able to give her Anti fibrinolytics due to recent Hemorrhagic stroke, asked for MRI brain Aspirin 81 mg daily, Echocardiogram, will follow specialist recommendations by her Primary Neurology specialist Doctor Odilon Head. 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 No nausea, vomit or diarrhea. Not given aspirin by Neurology for discharge, as per Physical Therapy okay to discharge home and follow her outpatient PT and no need for equipment. Echocardiogram EF 55-60%. Code Status Full code. Discussed Condition With Patient, her Son and Daughter in law, all questions answered to the best of my abilities. Discharge Planning Discharge home as per Neurology specialist. Anand Toro MD Nov 17, 2016 11:06
[2016-11-17 13:59] LABS: HEMOGLOBIN A1b 0.8 %; HEMOGLOBIN F 0.9 %; HEMOGLOBIN LA1C 1.7 %; HEMOGLOBIN P3 3.6 %
--- NOTE | 2016-11-17 15:31 | ECHRPT ---
Indication: CVA/TIA CONCLUSIONS The left ventricular systolic function is normal with an estimated ejection fraction in the range of 55-60%. Trace mitral valve regurgitation. Aortic valve sclerosis is present. There is mild tricuspid valve regurgitation. The estimated pulmonary arterial pressure is 39 mmHg. BP: 199 / 85 HR: 72 Rhythm: Sinus MEASUREMENTS (Male / Female) Normal Values Technical Quality:Good 2D ECHO LV Diastolic Diameter PLAX 4.4 cm 4.2 - 5.9 / 3.9 - 5.3 cm LV Systolic Diameter PLAX 2.9 cm IVS Diastolic Thickness 1.1 cm 0.6 - 1.0 / 0.6 - 0.9 cm LVPW Diastolic Thickness 1.1 cm 0.6 - 1.0 / 0.6 - 0.9 cm LV Relative Wall Thickness 0.5 RV Internal Dim ED PLAX 2.6 cm LVOT Diameter 2.0 cm LA Systolic Diameter LX 4.0 cm 3.0 - 4.0 / 2.7 - 3.8 cm LV Ejection Fraction MOD 4C 58.0 % LV Cardiac Index MOD 4C 1924.9 cm/minm LV Ejection Fraction 4C AL 62.8 % LV Cardiac Index 4C AL 2160.8 cm/minm M-MODE Aortic Root Diameter MM 2.7 cm AV Cusp Separation MM 1.8 cm DOPPLER AV Peak Velocity 152.0 cm/s AV Peak Gradient 9.2 mmHg LVOT Peak Velocity 110.0 cm/s LVOT Peak Gradient 4.8 mmHg AV Area Cont Eq pk 2.3 cm MV Area PHT 3.5 cm Mitral E Point Velocity 109.0 cm/s Mitral A Point Velocity 89.3 cm/s Mitral E to A Ratio 1.2 TV Peak Velocity 294.0 cm/s TR Peak Velocity 248.0 cm/s TR Peak Gradient 24.6 mmHg PV Peak Velocity 73.8 cm/s PV Peak Gradient 2.2 mmHg FINDINGS LEFT VENTRICLE Normal left ventricular size and wall thickness. The left ventricular systolic function is normal wi th an estimated ejection fraction in the range of 55-60%. Left ventricular diastolic function parameters a re normal. RIGHT VENTRICLE Normal right ventricular size and systolic function. LEFT ATRIUM The left atrial size is normal. RIGHT ATRIUM The right atrial size is normal. ATRIAL SEPTUM Normal atrial septal thickness without atrial level shunting by limited color doppler interrogation. AORTA The aortic root and proximal ascending aorta are normal in size on limited imaging. MITRAL VALVE Trace mitral valve regurgitation. AORTIC VALVE Aortic valve sclerosis is present. TRICUSPID VALVE There is mild tricuspid valve regurgitation. The estimated pulmonary arterial pressure is 39 mmHg. PULMONARY VALVE The pulmonary valve is not well visualized. VESSELS The inferior vena cava is normal in size. PERICARDIUM No pericardial effusion. Marshall Aguilera MD (Electronically Signed) Final Date:17 November 2016 15:30
--- NOTE | 2016-11-17 15:41 | EKG ---
Date Performed: 11/16/2016 Time Performed: 11:29:47 PTAGE: 76 years EKG: SINUS BRADYCARDIA NONSPECIFIC T-WAVE ABNORMALITY PROLONGED QT INTERVAL ABNORMAL ECG NO PREVIOUS TRACING DOCTOR: Zackery Ortiz Interpretating Date/Time 11/17/2016 15:40:59
[2016-11-17] MEDS ORDERED: ATOR40TA16 PO (15:47)
[2016-11-17] MEDS ORDERED: OXCA600T PO (15:52)
--- NOTE | 2016-11-17 15:59 | HHI.DS ---
Discharge Summary Admission Date Nov 16, 2016 at 12:40 Discharge Date: Nov 17, 2016 Admitting Diagnosis (1) TIA (transient ischemic attack) ICD Code: G45.9 Diagnosis: Principal (2) Dysarthria ICD Code: R47.1 Diagnosis: Principal Procedures None Brief History - From Admission This is a pleasant 76 y/o Female who was brought in to ER as Stroke Alert as per EMS the patient was outside in the heat earlier today when she suddenly developed some difficulty with her speech and mild confusion. The patient's onset of symptoms were at 10 AM according to EMS. The patient does have a previous history of CVA with right sided deficits, however, they state the patient apparently has normal speech according to the . EMS states that the patient's GCS was 14, she had difficulty answering questions and had noticeable dysarthria. Upon arrival the patient does appear to have expressive dysarthria, unsure if she has receptive aphasia as she does not repeat phrases properly and has difficulty answering questions except for her name. The medication list by EMS reveals the patient apparently takes no blood thinners including aspirin. Patient seen in her bedroom in the presence of her Mr. Cristobal and her Son Mr. Diana and Daughter in Law Jennie the patient was at home with her but she was outside the house with the dog and her called her to come in due to the warm weather and when she came in she passed out and was unconscious when was able to regain consciousness she developed slurred speech with Expressive Dysarthria. CBC/BMP: 11/16/16 1045 Significant Findings Laboratory Tests Test 11/16/16 11/16/16 11/16/16 11/17/16 10:45 15:05 18:09 03:00 Neutrophils (%) (Auto) 70.1 % (16.0-70.0) Lymphocytes # (Auto) 0.9 TH/MM3 (1.0-4.8) Bedside Sodium 133 MMOL/L (138-146) Bedside Chloride 96 MMOL/L (98-109) Bedside Glucose 119 MG/DL (60-95) Troponin I LESS THAN 0.02 NG/ML (0.02-0.05) Urine Ketones 40 mg/dL (NEG) 10 mg/dL (NEG) Urine Leukocyte Esterase MOD (NEG) Cholesterol Level 209 MG/DL (120-200) LDL Cholesterol 107 MG/DL (0-99) HDL Cholesterol 87.8 MG/DL (40.0-60.0) Urine Mucus FEW /lpf (OCC) Test 11/17/16 08:30 HDL Cholesterol 73.8 MG/DL (40.0-60.0) Imaging Last Impressions Brain MRI 11/16/16 1155 Signed Impressions: Service Date/Time: Wednesday, November 16, 2016 17:01 - CONCLUSION: 1. No acute infarction. 2. Remote cerebral vascular accidents in the right parietal lobe. 3. Moderate atrophy and extensive chronic small vessel ischemic change. Brock Stephens MD Neck CTA 11/16/16 1047 Signed Impressions: Service Date/Time: Wednesday, November 16, 2016 10:56 - CONCLUSION: 1. The carotid and vertebral circulation is widely patent. 2. Mild enlargement of the thyroid with heterogeneous enhancement suggesting goiter. Yash Weaver MD Head CTA 11/16/16 1047 Signed Impressions: Service Date/Time: Wednesday, November 16, 2016 10:56 - CONCLUSION: No large or central vessel occlusion identified. Case was discussed with Dr. Garcia in the ED at the time of the dictation. Yash Weaver MD Head CT 11/16/16 0000 Signed Impressions: Service Date/Time: Wednesday, November 16, 2016 10:50 - CONCLUSION: 1. No acute hemorrhage, mass or evidence of definite infarction. 2. Old right parietal cerebral vascular accident. 3. Atrophy and extensive apparent chronic small vessel ischemic change limiting the sensitivity of the exam for subtle findings. Brock Stephens MD Chest X-Ray 11/16/16 0000 Signed Impressions: Service Date/Time: Wednesday, November 16, 2016 11:07 - CONCLUSION: No acute disease. Brock Stephens MD PE at Discharge GENERAL: No distress. SKIN: Focused skin assessment warm/dry. HEAD: Atraumatic. Normocephalic. EYES: Pupils equal and round. Pupils are 3 mm bilateral and reactive. She is able to see fingers at a distance of 2 feet without difficulty. Occasional droop of the right upper eyelid. ENT: No nasal bleeding or discharge. Mucous membranes pink and moist. NECK: Trachea midline. No JVD. CARDIOVASCULAR: Regular rate and rhythm. No murmur appreciated. RESPIRATORY: No accessory muscle use. Clear to auscultation. Breath sounds equal bilaterally. GASTROINTESTINAL: Abdomen soft, non-tender, nondistended. No rebound tenderness. MUSCULOSKELETAL: No obvious deformities. No clubbing. No cyanosis. No edema. NEUROLOGICAL: Awake and alert. Patient appears to have mild left facial droop. No focal deficit at this time. PSYCHIATRIC: Unable to assess. Hospital Course This is a pleasant 76 y/o Female who was brought in to ER as Stroke Alert as per EMS the patient was outside in the heat earlier today when she suddenly developed some difficulty with her speech and mild confusion. The patient's onset of symptoms were at 10 AM according to EMS. The patient does have a previous history of CVA with right sided deficits, however, they state the patient apparently has normal speech according to the . EMS states that the patient's GCS was 14, she had difficulty answering questions and had noticeable dysarthria. Upon arrival the patient does appear to have expressive dysarthria, unsure if she has receptive aphasia as she does not repeat phrases properly and has difficulty answering questions except for her name. The medication list by EMS reveals the patient apparently takes no blood thinners including aspirin. Patient seen in her bedroom in the presence of her Mr. Cristobal and her Son Mr. Diana and Daughter in Law Jennie the patient was at home with her but she was outside the house with the dog and her called her to come in due to the warm weather and when she came in she passed out and was unconscious when was able to regain consciousness she developed slurred speech with Expressive Dysarthria. 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 No nausea, vomit or diarrhea. Assessment and Plan TIA in a patient with previous CVA status post Intracranial Hemorrhage with Primary Neurology Specialist Doctor Gianna admitted for further workup, was not able to give her Anti fibrinolytics due to recent Hemorrhagic stroke, asked for MRI brain Aspirin 81 mg daily, Echocardiogram, will follow specialist recommendations by her Primary Neurology specialist Doctor Odilon Head. 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 No nausea, vomit or diarrhea. Not given aspirin by Neurology for discharge, as per Physical Therapy okay to discharge home and follow her outpatient PT and no need for equipment. Echocardiogram EF 55-60%. Code Status Full code. Discussed Condition With Patient, her Son and Daughter in law, all questions answered to the best of my abilities. Discharge Planning Discharge home as per Neurology specialist. Pt Condition on Discharge: Good Discharge Disposition: Discharge Home Discharge Time: <= 30 minutes Discharge Instructions DIET: Follow Instructions for: Heart Healthy Diet Speech Therapy-Diet Recommends: Regular Activities you can perform: Regular-No Restrictions Other Activity Instructions: continue management with physical Therapy at home. Anand Toro MD Nov 17, 2016 15:59
--- NOTE | 2016-11-19 08:08 | MG ---
cc: FLORENCIA MANDUJANO Lab No: [id number] Date: 11/16/16 Age: 76 Sex: F Race: HISTORY Stroke alert. History of hemorrhage. History of seizures. An 8 hertz, 60 microvolt posterior rhythm is seen. Some slowing is seen in the left posterior temporal head region. Some eye movement artifact is seen. Some diffuse slowing is also noted. Photic stimulation was performed without significant posterior driving. I do not see any major hemisphere asymmetries or epileptiform or seizure activity here, however. IMPRESSION Some diffuse slowing. A little bit of left posterior temporal slowing but no seizure activity is noted. MD DYAN Middleton/GOLDY /7:37 PM /8:06 AM
--- NOTE | 2016-11-21 20:25 | HM ---
Date Performed: 11/16/2016 Time Performed: 19:32:00 HOOKUP DATE: 11/16/16 07:32:00 PM Fri ANALYSIS START TIME: 11/16/2016 7:37:00 PM ANALYSIS END TIME: 11/17/2016 6:35:35 PM PATIENT AGE: 76 PATIENT HEIGHT PATIENT WEIGHT DRUG LIST PATIENT DIAGNOSIS: STROKE ALERT TEST NARRATIVE: The patient's average heart rate was 51 BPM. No episodes of tachycardia wer e noted. Heart rates less than 50 BPM were noted 72% of the time. No pauses exceeding 2.0 second s were noted. 165 ventricular ectopics, which represented < 1% of the total beat count, were note d. The highest ventricular ectopic frequency occurred from 07:00 AM to 08:00 AM Sat. During this ti me 21 VE(s) occurred. Ventricular ectopics were observed as 165 isolated beat(s) only. No couplets or runs were noted. 15 supraventricular ectopics, which represented < 1% of the total beat count, were noted. The highest supraventricular ectopic frequency occurred from 01:00 AM to 02:00 AM Sat. During this time 3 SVE(s) occurred. No episodes of ST depression (defined as -1.0 mm or more) we re noted in channel 1. No episodes of ST depression (defined as -1.0 mm or more) were noted in chann el 2. No episodes of ST depression (defined as -1.0 mm or more) were noted in channel 3. NO DIARY MA INTAINED TEST INTERPRETATION: Sinus rhythm Significant sinus bradycardia Frequent PVCs Occasional PACs Signed by : Jori Costa
== END 2016-11-17 18:31 | disposition home or self-care (01) | DRG 69 ==
LOC: NEPE 10:45 → NEDA 12:40 → N05B 15:22
PROVIDERS: ADMIT Internal Medicine; ATTEND Internal Medicine
DX: G45.9 Transient cerebral ischemic attack, unspecified (principal); G40.89 Other seizures; F03.90 Unspecified dementia, unspecified severity, without behavioral disturbance, psychotic disturbance, mood disturbance, and anxiety; I69.30 Unspecified sequelae of cerebral infarction; R47.1 Dysarthria and anarthria; Z87.442 Personal history of urinary calculi; Z96.653 Presence of artificial knee joint, bilateral
CPT/HCPCS: 70450; 70496; 70498; 70553; 71010; 80061; 80183; 80307; 81001; 82435; 82550; 82565; 82607; 82947; 82948; 83036; 84132; 84295; 84425; 84439; 84443; 84484; 84520; 85025; 85384; 85610; 85652; 85730; 86850; 86900; 86901; 93005; 93225; 93226; 93306; 94150; 95819; A9579; J7030; J7040; Q9967

== ENCOUNTER 2017-01-03 15:49 | Emergency (ER) | payer MEDICARE, OTHER ==
[~2017-01-03] VITALS: Ht 160 cm; Wt 70.0 kg
[~2017-01-03 15:49] MED LIST: ATOR40TA16 PO; DONE10TA7 PO; FAMO20TA2 PO; FLUO40CA PO; OXCA600T PO; SODI1TAB PO
[2017-01-03 15:53] VITALS: BP 136/57; PULSE 58; RESP 16; TEMP 98.2; O2SAT 98
--- NOTE | 2017-01-03 16:40 | PD ---
HPI Chief Complaint: Injury Time Seen by Provider: 16:25 Travel History International Travel<30 days: No Contact w/Intl Traveler<30days: No Traveled to known affect area: No History of Present Illness HPI 76-year-old female presents to emergency Department with complaint of right shoulder pain 1-1/2 weeks after using the banister of a staircase to help pull herself to walk up the stairs. Denies paresthesias, loss of sensation to the affected extremity. Reports decreased range of motion of the right shoulder. Denies fever, vomiting. Has not taken any medication to alleviate her symptoms. Has iced the shoulder for symptomatic management. Pain is aggravated with abduction. Has no other medical complaints. Symptoms are mild in severity. Allergies to epinephrine. No other modifying factors or associated signs and symptoms. PFSH Past Medical History Anxiety: Yes Cardiovascular Problems: Yes Cerebrovascular Accident: Yes (2015) Dementia: Yes Psychiatric: Yes (bulimia) Past Surgical History Abdominal Surgery: Yes (lap band, tummy tuck) Genitourinary Surgery: Yes ("kidney stone sugery") Social History Alcohol Use: No Tobacco Use: No Substance Use: No Allergies-Medications (Allergen,Severity, Reaction): Coded Allergies: epinephrine (Verified Allergy, Intermediate, 01/03/17) Reported Meds & Prescriptions Reported Meds & Active Scripts Active Lortab (Hydrocodone-Acetaminophen) 5-325 Mg Tab 1 Tab PO Q6H PRN Oxcarbazepine 600 Mg Tab 600 Mg PO BID Atorvastatin (Atorvastatin Calcium) 40 Mg Tab 40 Mg PO HS Reported Sodium Chloride 1 Gm Tab 1 Gm PO DAILY Famotidine 20 Mg Tab 20 Mg PO BID Donepezil 10 Mg Tab 10 Mg PO HS Oxcarbazepine 600 Mg Tab 600 Mg PO DAILY Fluoxetine (Fluoxetine HCl) 40 Mg Cap 40 Cap PO DAILY Review of Systems Except as stated in HPI: all other systems reviewed are Neg Physical Exam Narrative GENERAL: Well-nourished, well-developed elderly, female patient, in no acute distress SKIN: Warm and dry. HEAD: Atraumatic. Normocephalic. EYES: Pupils equal and round. No scleral icterus. No injection or drainage. ENT: Mucosa pink and moist. Airway patent. NECK: Supple. Trachea midline. CARDIOVASCULAR: Regular rate and rhythm. No murmur appreciated. RESPIRATORY: No accessory muscle use. Clear to auscultation. Breath sounds equal bilaterally. MUSCULOSKELETAL: Right shoulder with limited range of motion; abduction to approximately 45; joint stable; shoulders equal; tenderness on palpation to the top of the shoulder joint; right shoulder with no obvious deformities. 5/5 strength. Right upper extremity supple and non-tense. 2+ radial pulse and sensory intact. No obvious deformities. No clubbing. No cyanosis. No edema. NEUROLOGICAL: Awake and alert. Oriented 3. No obvious cranial nerve deficits. Motor grossly within normal limits. Normal speech. PSYCHIATRIC: Appropriate mood and affect; insight and judgment normal. Data Data Last Documented VS Vital Signs Date Time Temp Pulse Resp B/P (MAP) Pulse Ox O2 Delivery O2 Flow Rate FiO2 01/03/17 15:53 98.2 58 16 136/57 (83) 98 Orders Orders Shoulder, Complete (>2vws) (01/03/17 16:09) Acetamin-Hydrocod 325-5 Mg (Brothers 5-325 (01/03/17 16:45) Sling Cradle Arm (01/03/17 ) MDM Medical Decision Making Medical Screen Exam Complete: Yes Emergency Medical Condition: Yes Medical Record Reviewed: Yes Differential Diagnosis Rotator cuff tear, shoulder strain, shoulder injury, less likely fracture dislocation Narrative Course 76-year-old female physical examination consistent with right shoulder strain. I offered the patient pain medication and she declined. Right shoulder x-ray ordered. 1645: Patient requesting pain medication. Agreed to take half a Lortab. Half Lortab ordered. 1700: Right shoulder x-ray concludes: Shoulder X-Ray 01/03/17 1609 Signed Impressions: Service Date/Time: December 16:22 - CONCLUSION: Osteopenia with no fracture or malalignment. Brock Stephens MD X-ray findings discussed with patient. Arm sling provided for support. Lortab prescribed for home. Instructed Patient to follow up with orthopedics. Instructed patient to follow up with primary care provider. Patient verbalizes understanding and agreement with treatment plan. Patient is medically cleared and stable for discharge. Discussed reasons to return to the emergency department. Patient agrees with treatment plan. The patients vital signs are stable and the patient is stable for outpatient follow-up and treatment. Patient discharged home, stable and in no acute distress. Diagnosis Primary Impression: Right shoulder strain Qualified Codes: S46.911A - Strain of unspecified muscle, fascia and tendon at shoulder and upper arm level, right arm, initial encounter Referrals: Primary Care Physician Patient Instructions: General Instructions, Shoulder Sprain (ED) Additional Instructions: Tylenol as needed and as directed to reduce pain and inflammation Rest and ice extremity to decrease pain and inflammation Arm sling for support Avoid aggravating activity; increase activity as tolerated Follow-up with primary care provider Follow-up with orthopedics Return to the emergency department immediately with worsening symptoms Med/Other Pt SpecificInfo: Prescription(s) given Scripts Hydrocodone-Acetaminophen (Lortab) 5-325 Mg Tab 1 TAB PO Q6H Y for PAIN, #10 TAB 0 Refills Prov: Lilibeth Suresh 01/03/17 Disposition: 01 DISCHARGE HOME Condition: Stable Lilibeth Suresh Jan 03, 2017 16:40
[2017-01-03] MEDS ORDERED: HYDR-3533 PO (16:45)
[2017-01-03] MEDS ORDERED: ACETAMINOPHEN/HYDROcodone 325 MG/5 MG TAB PO ONE (16:45)
--- NOTE | 2017-01-03 16:53 | RADRPT ---
EXAM DATE/TIME: 01/03/2017 16:22 [facility] COMPARISON: No previous studies available for comparison. INDICATIONS : Right shoulder pain after pulling herself up. MEDICAL HISTORY : Stroke. SURGICAL HISTORY : None. ENCOUNTER: Initial ACUITY: 1 week PAIN SCORE: 5/10 LOCATION: Right lateral shoulder. FINDINGS: Multiple view examination of the right shoulder demonstrates no evidence of fracture or dislocation. The glenohumeral and acromioclavicular joints are maintained. There is normal range of motion betwe en internal and external rotation. There is diffuse osteopenia. There is a calcified granuloma in the right upper lobe. CONCLUSION: Osteopenia with no fracture or malalignment. Brock Stephens MD on January 03, 2017 at 16:50 Board Certified Radiologist. This report was verified electronically.
== END 2017-01-03 17:27 | disposition home or self-care (01) ==
LOC: NEPK 15:49
DX: S46.911A Strain of unspecified muscle, fascia and tendon at shoulder and upper arm level, right arm, initial encounter (principal); X50.0XXA Overexertion from strenuous movement or load, initial encounter; Y93.01 Activity, walking, marching and hiking
CPT/HCPCS: 73030; 99283